=== PATIENT | male | born 1950 | race Caucasian/White ===

== ENCOUNTER 2019-05-09 22:40 | Emergency (ER) | payer MEDICARE, OTHER ==
[~2019-05-09] VITALS: Ht 170.2 cm; Wt 68.0 kg
[~2019-05-09 22:40] MED LIST: ALFU10 PO; ASPI325 PO; ATEN25 PO; ATOR80 PO; CIPR500 PO; CLOP75 PO; ELIQUIS5 MG PO; HYDR1TAB94 PO; ISOMON20 PO; LISI5 PO; Nitrostat0.4 MG SL; PRAV20 PO; PRAV40 PO; RXOXYACE PO; RXPROM25 PO; SENN187 PO; TAMS.4ER PO; TRIA80TC TOP; [UNRECOGNIZED DRUG - REMARK]
[2019-05-09 23:48] LABS: BASOPHILS ABSOLUTE AUTO 0.04 K/mm3 (0.00-0.23); BASOPHILS PERCENT AUTO 1 % (0-2); EOSINOPHILS ABSOLUTE AUTO 0.15 K/mm3 (0.00-0.68); EOSINOPHILS PERCENT AUTO 3 % (0-6); Hemoglobin 13.4 g/dL (13.5-17.5); IMMATURE GRAN ABSOLUTE AUTO 0.01 K/mm3 (0.00-0.10); IMMATURE GRAN PERCENT AUTO 0 % (0-1); LYMPHOCYTES ABSOLUTE AUTO 1.51 K/mm3 (0.84-5.20); LYMPHOCYTES PERCENT AUTO 26 % (21-46); MONOCYTES ABSOLUTE AUTO 0.68 K/mm3 (0.16-1.47); MONOCYTES PERCENT AUTO 12 % (4-13); Mean Corpuscular HGB 33.2 pg (26.0-34.0); Mean Corpuscular HGB Conc 34.4 g/dL (31.5-36.5); Mean Corpuscular Volume 97 fL (80-100); Mean Platelet Volume 12.3 fL (9.1-12.4); NEUTROPHILS ABSOLUTE AUTO 3.33 K/mm3 (1.96-9.15); NEUTROPHILS PERCENT AUTO 58 % (41-73); Platelet Count 114 K/mm3 (150-400); RDW Coefficient Variation 12.2 % (11.7-14.2); RDW Standard Deviation 43.4 fL (35.1-46.3); Red Blood Cell Count 4.04 M/mm3 (4.30-5.90); White Blood Cell Count 5.72 K/mm3 (4.00-11.30)
[2019-05-10 00:08] LABS: Alanine Aminotransfer (ALT/SGP 34 U/L (12-78); Albumin, Blood 3.8 g/dL (3.4-5.0); Albumin/Globulin Ratio 1.1 (0.8-1.8); Alk Phos 40 U/L (50-136); Anion Gap 8 mmol/L (6-16); Aspartate Aminotrans (AST/SGOT 27 U/L (12-37); Bilirubin, Total 0.3 mg/dL (0.1-1.0); Blood Urea Nitrogen 17 mg/dL (8-24); Bun/Creatinine Ratio 25.2 (12.0-20.0); CO2, Blood 26 mmol/L (21-32); Calcium, Blood 8.4 mg/dL (8.5-10.1); Chloride, Blood 104 mmol/L (98-108); Creatinine, Blood 0.68 mg/dL (0.60-1.20); Globulin, Blood 3.4 g/dL (2.2-4.0); Glomerular Filtration Rate >60 (60-); Glucose, Blood 106 mg/dL (70-99); Potassium, Blood 3.6 mmol/L (3.5-5.5); Sodium, Blood 138 mmol/L (136-145); Total Protein, Blood 7.2 g/dL (6.4-8.2); Troponin I <0.015 ng/mL (0.000-0.040)
== END 2019-05-10 01:37 | disposition home or self-care (01) ==
LOC: ER 22:40
PROVIDERS: Emergency Medicine
DX: I48.91 Unspecified atrial fibrillation (principal); Z79.899 Other long term (current) drug therapy; Z79.82 Long term (current) use of aspirin; I10 Essential (primary) hypertension
CPT/HCPCS: 80053; 84484; 85025; 93005; 93010; 99285-25

== ENCOUNTER → 2019-06-10 | Outpatient (CLI) | payer MEDICARE, OTHER ==
[2019-06-11 13:55] LABS: Stool Occult Bld Immuno 1 Negative (NEGATIVE); Stool Occult Bld Immuno 2 Negative (NEGATIVE)
== END | disposition home or self-care (01) ==
LOC: LAB SHORT 13:00 → LAB EV 13:00
PROVIDERS: Internal Medicine Gastroenterology
DX: K57.30 Diverticulosis of large intestine without perforation or abscess without bleeding (principal); Z86.010 Personal history of colon polyps
CPT/HCPCS: 82274

== ENCOUNTER 2021-06-25 12:10 | Emergency (ER) | payer MEDICARE, OTHER ==
[~2021-06-25] VITALS: Ht 170.2 cm; Wt 74.8 kg
[2021-06-25 12:41] LABS: BASOPHILS ABSOLUTE AUTO 0.03 K/mm3 (0.00-0.23); BASOPHILS PERCENT AUTO 1 % (0-2); EOSINOPHILS ABSOLUTE AUTO 0.07 K/mm3 (0.00-0.68); EOSINOPHILS PERCENT AUTO 1 % (0-6); Hematocrit 39.1 % (37.0-53.0); Hemoglobin 13.2 g/dL (13.5-17.5); IMMATURE GRAN ABSOLUTE AUTO 0.01 K/mm3 (0.00-0.10); IMMATURE GRAN PERCENT AUTO 0 % (0-1); LYMPHOCYTES ABSOLUTE AUTO 0.95 K/mm3 (0.84-5.20); LYMPHOCYTES PERCENT AUTO 17 % (21-46); MONOCYTES PERCENT AUTO 11 % (4-13); Mean Corpuscular HGB 32.8 pg (26.0-34.0); Mean Corpuscular HGB Conc 33.8 g/dL (31.5-36.5); Mean Corpuscular Volume 97 fL (80-100); Mean Platelet Volume 11.9 fL (9.1-12.4); NEUTROPHILS ABSOLUTE AUTO 4.05 K/mm3 (1.96-9.15); NEUTROPHILS PERCENT AUTO 71 % (41-73); Platelet Count 106 K/mm3 (150-400); RDW Coefficient Variation 13.1 % (11.7-14.2); RDW Standard Deviation 46.7 fL (35.1-46.3); Red Blood Cell Count 4.02 M/mm3 (4.30-5.90); White Blood Cell Count 5.71 K/mm3 (4.00-11.30)
[2021-06-25 13:17] LABS: Alanine Aminotransfer (ALT/SGP 127 U/L (12-78); Albumin, Blood 3.7 g/dL (3.4-5.0); Albumin/Globulin Ratio 1.1 (0.8-1.8); Alk Phos 47 U/L (50-136); Anion Gap 5 mmol/L (6-16); Aspartate Aminotrans (AST/SGOT 98 U/L (12-37); Bilirubin, Total 0.5 mg/dL (0.1-1.0); Blood Urea Nitrogen 13 mg/dL (8-24); Bun/Creatinine Ratio 17.4 (12.0-20.0); CO2, Blood 27 mmol/L (21-32); Calcium, Blood 8.5 mg/dL (8.5-10.1); Chloride, Blood 106 mmol/L (98-108); Creatinine, Blood 0.75 mg/dL (0.60-1.20); Globulin, Blood 3.4 g/dL (2.2-4.0); Glomerular Filtration Rate >60 (60-); Glucose, Blood 103 mg/dL (70-99); Potassium, Blood 4.6 mmol/L (3.5-5.5); Sodium, Blood 138 mmol/L (136-145); Total Protein, Blood 7.1 g/dL (6.4-8.2); Troponin I <0.015 ng/mL (0.000-0.040)
== END 2021-06-25 19:01 | disposition home or self-care (01) ==
LOC: ER 12:10
PROVIDERS: Emergency Medicine
DX: R07.89 Other chest pain (principal); R93.1 Abnormal findings on diagnostic imaging of heart and coronary circulation; I48.20 Chronic atrial fibrillation, unspecified; I25.10 Atherosclerotic heart disease of native coronary artery without angina pectoris; I10 Essential (primary) hypertension; E78.5 Hyperlipidemia, unspecified; N40.0 Benign prostatic hyperplasia without lower urinary tract symptoms; Z79.899 Other long term (current) drug therapy; Z79.82 Long term (current) use of aspirin; Z95.5 Presence of coronary angioplasty implant and graft
CPT/HCPCS: 36415; 71045; 80053; 84484; 85025; 93005; 93010; 99285-25

== ENCOUNTER 2021-07-20 10:48 | Day surgery (SDC) | payer MEDICARE, OTHER ==
[~2021-07-20] VITALS: Ht 170.2 cm; Wt 75.0 kg
[~2021-07-20 10:48] MED LIST changes: +ELIQUIS5 M2 PO; +ESCI10 PO; +METO25 PO; +METO50ER PO; +PACERONE100 M1 PO
--- NOTE | 2021-07-20 12:40 | NUR ---
PT VERBALIZED UNERSTANDING OF WRITTEN AND VERBAL D/C INST. SB 50BPM ON D/C. IV REMOVED.
== END 2021-07-20 22:49 | disposition home or self-care (01) ==
LOC: MHTC 10:48
DX: I48.19 Other persistent atrial fibrillation (principal); I45.10 Unspecified right bundle-branch block
CPT/HCPCS: 92960; 93005; 93010; J2704; J7030

== ENCOUNTER 2024-08-27 08:51 | Day surgery (SDC) | payer MEDICARE, OTHER ==
[2024-08-27] VITALS (12 sets, daily range): BP systolic 96–141; BP diastolic 63–99
[~2024-08-27] VITALS: Ht 170.2 cm; Wt 74.8 kg
[~2024-08-27 08:51] MED LIST changes: +Crestor40 MG PO; +NS 500 ML IV SCH; +propofoL 20 ML IV ONE
--- NOTE | 2024-08-27 09:42 | NUR ---
History, Chart, Medications and Allergies reviewed before start of procedure. Patient confirms NPO status and agrees with scheduled surgery. Patient states colon prep results clear. Lungs clear T/O to Auscultation. Pre-Op teaching done. Pt verbalizes understanding. Patient States Post-Procedure ride home has been arranged.
--- NOTE | 2024-08-27 09:47 | NUR ---
08/27/24 0947 Mariah De Anda History, Chart, Medications and Allergies reviewed before start of procedure. CONFIRMED AND REVIEWED H&P, MEDCICATIONS, ALLERGIES, MEDICAL HISTORY, RESPIRATORY HISTORY, VITAL SIGNS, 3-LEAD EKG, CONSENTS, AND PHYSICIAN ORDERS. PATIENT CONFIRMS NPO STATUS AND AGREES WITH SCHEDULED PROCEDURE. MONITOR INTACT WITH CONTINUOUS PULSE OXIMETRY, CAPNOGRAPHY, 3-LEAD EKG, INTERMITTENT BP. SUPPLEMENTAL O2 TO BE TITRATED THROUGHOUT PROCEDURE TO MAINTAIN O2 SATURATION ABOVE 90%. PATIENT DETERMINED TO BE ASA APPROPRIATE FOR PROPOFOL SEDATION PRIOR TO START OF PROCEDURE BY
--- NOTE | 2024-08-27 10:34 | NUR ---
Discharge instructions reviewed with patient. Patient verbalizes understanding. Copy given to patient to take home. Patient States Post-Procedure ride home has been arranged. Discharged via wheelchair to private car for ride home.
== END 2024-08-27 10:44 | disposition home or self-care (01) ==
LOC: ORSCMMR 08:51 → ORD 09:30 → ORSCMMR 09:30
PROVIDERS: Internal Medicine Gastroenterology
PROC: 0DJD8ZZ Inspection of Lower Intestinal Tract, Via Natural or Artificial Opening Endoscopic (ICD-10-PCS; principal; 2024-08-27 09:30)
DX: Z12.11 Encounter for screening for malignant neoplasm of colon (principal); Z86.0101 Personal history of adenomatous and serrated colon polyps; I48.0 Paroxysmal atrial fibrillation; I25.10 Atherosclerotic heart disease of native coronary artery without angina pectoris; F32.A Depression, unspecified; Z79.01 Long term (current) use of anticoagulants; Z79.899 Other long term (current) drug therapy
CPT/HCPCS: J2704; J7040

== ENCOUNTER 2024-11-12 13:24 | Observation (INO) | payer MEDICARE, OTHER ==
[~2024-11-12] VITALS: Ht 170.2 cm; Wt 77.0 kg
[~2024-11-12 13:24] MED LIST changes: -ESCI10 PO; +ESCI20 PO; +NITR.4SL SL; -NS 500 ML IV SCH; -Nitrostat0.4 MG SL; -propofoL 20 ML IV ONE
[2024-11-12 14:22] LABS: BASOPHILS ABSOLUTE AUTO 0.05 K/mm3 (0.00-0.23); BASOPHILS PERCENT AUTO 1 % (0-2); EOSINOPHILS ABSOLUTE AUTO 0.14 K/mm3 (0.00-0.68); EOSINOPHILS PERCENT AUTO 2 % (0-6); Hematocrit 39.5 % (37.0-53.0); Hemoglobin 13.6 g/dL (13.5-17.5); IMMATURE GRAN ABSOLUTE AUTO 0.03 K/mm3 (0.00-0.10); IMMATURE GRAN PERCENT AUTO 1 % (0-1); LYMPHOCYTES ABSOLUTE AUTO 1.37 K/mm3 (0.84-5.20); LYMPHOCYTES PERCENT AUTO 22 % (21-46); MONOCYTES PERCENT AUTO 11 % (4-13); Mean Corpuscular HGB 32.4 pg (26.0-34.0); Mean Corpuscular HGB Conc 34.4 g/dL (31.5-36.5); Mean Corpuscular Volume 94 fL (80-100); Mean Platelet Volume 11.6 fL (9.1-12.4); NEUTROPHILS ABSOLUTE AUTO 4.03 K/mm3 (1.96-9.15); NEUTROPHILS PERCENT AUTO 64 % (41-73); Platelet Count 138 K/mm3 (150-400); RDW Coefficient Variation 12.4 % (11.7-14.2); RDW Standard Deviation 42.5 fL (35.1-46.3); White Blood Cell Count 6.32 K/mm3 (4.00-11.30)
[2024-11-12 14:32] LABS: Albumin, Blood 3.9 g/dL (3.4-5.0); Albumin/Globulin Ratio 1.1 (0.8-1.8); Bilirubin, Total 0.4 mg/dL (0.1-1.0); Bun/Creatinine Ratio 32.9 (12.0-20.0); Calcium, Blood 9.3 mg/dL (8.5-10.1); Creatinine, Blood 0.61 mg/dL (0.60-1.20); Globulin, Blood 3.6 g/dL (2.2-4.0); Potassium, Blood 4.2 mmol/L (3.5-5.5); Total Protein, Blood 7.5 g/dL (6.4-8.2)
[2024-11-12] MEDS ORDERED: METO25 PO (14:33)
[2024-11-12] MEDS ORDERED: C COMPLEX1000 M1 PO (14:34)
[2024-11-12] MEDS ORDERED: ZINC PO (14:34)
[2024-11-12] MEDS ORDERED: VITAMIN D5000 UNIT PO (14:34)
[2024-11-12] MEDS ORDERED: Nitroglycerin 1 INCH/GM PKT TOP ONE (15:00)
[2024-11-12] MEDS ORDERED: Aspirin 325 MG Tab PO ONE (16:15)
[2024-11-12] MEDS ORDERED: HyDROXyzine HCl 25 MG Tab PO ONE (16:30)
[2024-11-12] MEDS ORDERED: FLU VACC TS2024-25(6MOS UP)/PF 45 MCG/0.5 ML SYRINGE IM SCH (16:45)
[2024-11-12 16:48] LABS: International Normalized Ratio 1.02; Prothrombin Time Results 10.9 Sec (9.7-11.5)
[2024-11-12] MEDS ORDERED: Atorvastatin 40 MG Tab PO SCH (17:00)
[2024-11-12] MEDS ORDERED: Dose Adjust by Pharmacy XX STA (17:21)
[2024-11-12] MEDS ORDERED: Heparin Sodium,Porcine/0.5 NS 500 ML IV SCH (17:25)
[2024-11-12] MEDS ORDERED: Metoprolol Tartrate 25 MG Tab PO PRN (17:30)
--- NOTE | 2024-11-12 18:10 | NUR ---
ARRIVED TO FLOOR AT 1810 ACCOMPANIED BY , SAMANTHA. HEPARIN GTTs INITIATED c SELWYN Monsivais RN.
[2024-11-12 18:18] VITALS: BP 121/77
[2024-11-12] MEDS ORDERED: LOSARTAN POTASS25 M2 PO (20:08)
[2024-11-12] MEDS ORDERED: HyDROXyzine HCl 25 MG Tab PO PRN (20:40)
[2024-11-12] MEDS ORDERED: Metoprolol Succinate 50 MG TABCR PO SCH (21:00)
[2024-11-12] MEDS ORDERED: Citalopram Hydrobromide 20 MG Tab PO SCH (21:00)
[2024-11-13 00:47] VITALS: BP 114/72
[2024-11-13] MEDS ORDERED: Dose Adjust by Pharmacy XX STA ×4 (01:05→21:38)
[2024-11-13] MEDS ORDERED: Isosorbide Mono30 MG PO (04:26)
[2024-11-13 04:58] VITALS: BP 114/76
[2024-11-13 05:24] LABS: BASOPHILS ABSOLUTE AUTO 0.06 K/mm3 (0.00-0.23); BASOPHILS PERCENT AUTO 1 % (0-2); EOSINOPHILS ABSOLUTE AUTO 0.19 K/mm3 (0.00-0.68); EOSINOPHILS PERCENT AUTO 4 % (0-6); Hematocrit 39.4 % (37.0-53.0); Hemoglobin 13.5 g/dL (13.5-17.5); IMMATURE GRAN ABSOLUTE AUTO 0.03 K/mm3 (0.00-0.10); IMMATURE GRAN PERCENT AUTO 1 % (0-1); LYMPHOCYTES ABSOLUTE AUTO 1.57 K/mm3 (0.84-5.20); LYMPHOCYTES PERCENT AUTO 30 % (21-46); MONOCYTES ABSOLUTE AUTO 0.55 K/mm3 (0.16-1.47); MONOCYTES PERCENT AUTO 11 % (4-13); Mean Corpuscular HGB 32.1 pg (26.0-34.0); Mean Corpuscular HGB Conc 34.3 g/dL (31.5-36.5); Mean Corpuscular Volume 94 fL (80-100); Mean Platelet Volume 11.4 fL (9.1-12.4); NEUTROPHILS ABSOLUTE AUTO 2.83 K/mm3 (1.96-9.15); NEUTROPHILS PERCENT AUTO 54 % (41-73); Platelet Count 137 K/mm3 (150-400); RDW Coefficient Variation 12.5 % (11.7-14.2); RDW Standard Deviation 43.3 fL (35.1-46.3); Red Blood Cell Count 4.21 M/mm3 (4.30-5.90); White Blood Cell Count 5.23 K/mm3 (4.00-11.30)
[2024-11-13 05:47] LABS: Bun/Creatinine Ratio 23.3 (12.0-20.0); Calcium, Blood 8.6 mg/dL (8.5-10.1); Creatinine, Blood 0.6 mg/dL (0.60-1.20)
--- NOTE | 2024-11-13 06:32 | NUR ---
PUBLIC RELATIONS CONSULTANT SUMMARY PT ADMITTED FROM THE ER. HE REPORTS OCCASIONAL CHEST PRESSURE, BUT NOT PAIN AND DENIES HAVING ANY CHEST PRESSURE NOW. HE UNDERSTANDS THAT HE NEEDS TO CALL STAFF IF HIS CHEST TIGHTNESS COMES BACK. HE REPORT THAT HIS CHEST HAS FELT BETTER EVER SINCE HE GOT THE NITRO PASTE IN THE ER. VSS OVERNIGHT. ON TELE, SB-NSR IN THE 50S-60S WITH SOME PVCS AND PACS. PT IS NPO IN ANTICIPATION OF A CARDIOLOGY CONSULT TODAY. CARDIOLOGY OFFICE NOTIFIED YESTERDAY EVENING OF CONSULT REQUEST. HEPARIN GTT RUNNING ALL NIGHT PER PHARMACY WITH NO INTERUPTION. MED REC COMPLETED WITH PATIENT AND HAS BEEN UPDATED ACCORDINGLY.
--- NOTE | 2024-11-13 07:46 | NUR ---
ASSUMED CARE OF PATIENT. LYING ON RIGHT SIDE FACING WINDOW. AWOKE UPON STAFF ENTERING ROOM. QUETSIONS REGARDING PLAN OF CARE; WILL DISCUSS c PROVIDERS WHEN THEY ROUND. NO ACUTE NEEDS.
[2024-11-13 07:47] VITALS: BP 127/79
[2024-11-13] MEDS ORDERED: Citalopram Hydrobromide 20 MG Tab PO SCH (09:00)
[2024-11-13] MEDS ORDERED: Cholecalciferol 1000 Unit Tablet (=25MCG) PO SCH (09:00)
[2024-11-13] MEDS ORDERED: Isosorbide Mononitrate 30 MG TABCR PO SCH (09:00)
[2024-11-13] MEDS ORDERED: Aspirin 81 MG Chew PO SCH (09:00)
[2024-11-13 13:08] VITALS: BP 104/89
--- NOTE | 2024-11-13 14:50 | NUR ---
STOPPED HEPARIN GTTs AND SALINE LOCKED FOR STRESS TEST. PHARMACY NOTIFIED.
[2024-11-13 19:48] VITALS: BP 107/59
--- NOTE | 2024-11-13 19:51 | NUR ---
END OF SHIFT SUMMARY: A&Ox4. PLEASANT AND COOPERATIVE WITH CARE. CALLS APPROPRIATELY AND IS ABLE TO ADVOCATE NEEDS EFFECTIVELY. CONTINENT OF BOWEL AND BLADDER. AMBULATES INDEPENDENTLY. MEDS WHOLE c FLUIDS. NO C/O PAIN. SOME MILD CHEST PRESSURE. CARDIOLOGY CONSULTED: ORDERS FOR EKG, TROPS, ECHO AND STRESS TEST. PART 1 OF 2 DONE. NPO AFTER MIDNIGHT FOR PART 2 OF 2 TOMORROW. BED IN LOWEST POSITION, CALL LIGHT WITHIN REACH, ALL NEEDS MET. REPORT TO ONCOMING NURSE.
[2024-11-14 00:05] VITALS: BP 121/71
[2024-11-14 03:34] LABS: Bun/Creatinine Ratio 20.8 (12.0-20.0); Calcium, Blood 8.7 mg/dL (8.5-10.1); Creatinine, Blood 0.63 mg/dL (0.60-1.20)
[2024-11-14 03:38] LABS: BASOPHILS ABSOLUTE AUTO 0.06 K/mm3 (0.00-0.23); BASOPHILS PERCENT AUTO 1 % (0-2); EOSINOPHILS ABSOLUTE AUTO 0.19 K/mm3 (0.00-0.68); EOSINOPHILS PERCENT AUTO 3 % (0-6); Hematocrit 40.3 % (37.0-53.0); Hemoglobin 13.6 g/dL (13.5-17.5); IMMATURE GRAN ABSOLUTE AUTO 0.03 K/mm3 (0.00-0.10); IMMATURE GRAN PERCENT AUTO 1 % (0-1); LYMPHOCYTES ABSOLUTE AUTO 1.53 K/mm3 (0.84-5.20); LYMPHOCYTES PERCENT AUTO 26 % (21-46); MONOCYTES ABSOLUTE AUTO 0.71 K/mm3 (0.16-1.47); MONOCYTES PERCENT AUTO 12 % (4-13); Mean Corpuscular HGB 32.1 pg (26.0-34.0); Mean Corpuscular HGB Conc 33.7 g/dL (31.5-36.5); Mean Corpuscular Volume 95 fL (80-100); Mean Platelet Volume 11.2 fL (9.1-12.4); NEUTROPHILS ABSOLUTE AUTO 3.46 K/mm3 (1.96-9.15); NEUTROPHILS PERCENT AUTO 58 % (41-73); Platelet Count 130 K/mm3 (150-400); RDW Coefficient Variation 12.7 % (11.7-14.2); RDW Standard Deviation 43.8 fL (35.1-46.3); Red Blood Cell Count 4.24 M/mm3 (4.30-5.90); White Blood Cell Count 5.98 K/mm3 (4.00-11.30)
[2024-11-14] MEDS ORDERED: Dose Adjust by Pharmacy XX STA (04:19)
[2024-11-14 04:58] VITALS: BP 138/79
--- NOTE | 2024-11-14 06:18 | NUR ---
BUSINESS DIVISION CHAIR SUMMARY PT GIVEN HYDROXYZINE AT BEDTIME FOR ANXIETY AND HE REPORTS GETTING A DECENT SLEEP. HE REPORTS THAT HE STILL EXPERIENCES VERY MILD CHEST PRESSURE THAT IS NOT PAINFUL INTERMITTENTLY AND DOESNT COME ON WITH ACTIVITY BUT PRESENTS WHEN HE FEEL ANXIOUS. VSS. HEP GTT RUNNING PER PHARMACIST ALL NIGHT WITH NO INTERUPTIONS. NO EVENTS ON TELE, SINUS ANDREA-NSR IN THE 50S-60S. PT IS NPO EXCEPT FOR WATER FOR 2ND PART OF STRESS TEST TODAY.
[2024-11-14] MEDS ORDERED: Regadenoson 0.4 MG/5 ML SYRINGE ONE (07:48)
[2024-11-14] MEDS ORDERED: METO50ER PO (15:18)
[2024-11-14] MEDS ORDERED: METO25 PO (15:56)
[2024-11-14] MEDS ORDERED: RANO500T PO (15:56)
[2024-11-14] MEDS ORDERED: Vitamin D1000 UNI1 PO (15:57)
[2024-11-14] MEDS ORDERED: Crestor40 MG PO (15:57)
--- NOTE | 2024-11-14 16:39 | NUR ---
PT DISCHARGED WITH INSTRUCTION AT 1621. DECLINED WHEELCHAIR, STAFF ESCORTED PT TO [facility], HE WILL DRIVE HIMSELF HOME. HIS ACCOMPANY HIM WILL DRIVE THE 2ND CAR HOME. [facility] ZIO PATCH PLACED BEFORE DC. SENT HOME WITH BELONGINGS
--- NOTE | 2024-11-14 16:42 | NUR ---
PT HAD UNDOCCUMANTED IV RAC AND LF. DC'D BOTH IV'S, BOTH CATH INTACT
[2024-11-14] MEDS ORDERED: Ranolazine 500 MG ER Tablet PO SCH (21:00)
== END 2024-11-14 16:24 | disposition home or self-care (01) ==
LOC: ER 13:24 → MEDS 13:25
PROVIDERS: Student in an Organized Health Care Education/Training Program; ADMIT Internal Medicine
DX: I25.110 Atherosclerotic heart disease of native coronary artery with unstable angina pectoris (principal); I48.0 Paroxysmal atrial fibrillation; I10 Essential (primary) hypertension; E78.5 Hyperlipidemia, unspecified; F41.9 Anxiety disorder, unspecified; N40.0 Benign prostatic hyperplasia without lower urinary tract symptoms; Z79.01 Long term (current) use of anticoagulants; Z79.899 Other long term (current) drug therapy; Z95.5 Presence of coronary angioplasty implant and graft
CPT/HCPCS: 36415; 71046; 78452; 80048; 80053; 84484; 85025; 85379; 85610; 85730; 86141; 93005; 93010; 93017; 93246; 93306; 96374; 96376; 99285-25; A9270; A9500; G0378; J1644; J2785